=== PATIENT | female | born 1965 | race Caucasian/White ===

== ENCOUNTER → 2016-11-25 | Outpatient (CLI) | payer OTHER ==
[~2016-11-25] MED LIST: GLUC1CAP18 PO; MULT1TAB60 PO
== END | disposition home or self-care (01) ==
LOC: CFH 13:50
PROVIDERS: ATTEND Family Medicine
DX: Z12.31 Encounter for screening mammogram for malignant neoplasm of breast (principal); M25.511 Pain in right shoulder
CPT/HCPCS: 73030; 77063; G0202

== ENCOUNTER 2019-02-06 10:35 | Emergency (ER) | payer OTHER ==
[~2019-02-06] VITALS: Ht 167.6 cm; Wt 85.7 kg
[2019-02-06 10:37] VITALS: BP 151/66
[2019-02-06] MEDS ORDERED: ACETAMINOPHEN 500 MG TABLET PO ONE (11:00)
[2019-02-06] MEDS ORDERED: ONDANSETRON 2MG/ML, 2ML IVPush ONE (11:00)
[2019-02-06] MEDS ORDERED: OMEG-157 PO (11:15)
[2019-02-06] MEDS ORDERED: ACETAMINOPHEN 500 MG TABLET ONE (11:22)
--- NOTE | 2019-02-06 11:28 | NUR ---
PIV STARTED AND BLOOD DRAWN. URINE COLLECTED AND SENT TO LAB WITH BLOOD. CARDIAC AND SPO2 AND BP CUFF APPLIED.
[2019-02-06 11:32] LABS: BASOPHILS # (AUTO) 0.02 x10^3/uL (0-0.1); BASOPHILS % (AUTO) 0 % (0-1); EOSINOPHILS # (AUTO) 0.08 x10^3/uL (0-0.4); EOSINOPHILS % (AUTO) 1 % (1-7); LYMPHOCYTES # (AUTO) 0.91 x10^3/uL (1-3.4); LYMPHOCYTES % (AUTO) 15 % (22-44); MD NO; MEAN CORPUSCULAR HEMOGLOBIN 30.1 pg (27.0-34.8); MEAN CORPUSCULAR HGB CONC 33.2 g/dL (32.4-35.8); MEAN CORPUSCULAR VOLUME 90.8 fL (80-100); MEAN PLATELET VOLUME 8.2 fL (7.4-10.4); MONOCYTES # (AUTO) 0.44 x10^3/uL (0.2-0.8); MONOCYTES % (AUTO) 7 % (2-9); NEUTROPHILS # (AUTO) 4.81 x10^3/uL (1.8-6.8); NEUTROPHILS % (AUTO) 77 % (42-75); PLATELET COUNT 255 x10^3/uL (130-400); RED CELL DISTRIBUTION WIDTH 13.3 % (9.6-15.2)
[2019-02-06 11:46] LABS: ALANINE AMINOTRANSFERASE 36 U/L (12-78); ANION GAP 5 mmol/L (5-15); CALCIUM 8.9 mg/dL (8.5-10.1); CHLORIDE 110 mmol/L (98-107); CREATININE 0.75 mg/dL (0.55-1.02)
[2019-02-06 11:48] LABS: ALKALINE PHOSPHATASE 56 U/L (45-117); BILIRUBIN,TOTAL 0.5 mg/dL (0.2-1.0); TOTAL PROTEIN 7.5 g/dL (6.4-8.2)
[2019-02-06 11:50] LABS: MICROSCOPIC AUTO
[2019-02-06 11:52] LABS: CULTURE INDICATED? YES
--- NOTE | 2019-02-06 12:17 | NUR ---
PT TO CT AT THIS TIME.
[2019-02-06] MEDS ORDERED: OMNIPAQUE 350 MG/ML, 100ML BOTTLE ONE (12:30)
--- NOTE | 2019-02-06 13:43 | NUR ---
Patient/Caregiver given discharge instructions and they have confirmed that they understand the instructions. Patient ambulatory with steady gait.
== END 2019-02-06 13:44 | disposition home or self-care (01) ==
LOC: ED 11:50
DX: K57.32 Diverticulitis of large intestine without perforation or abscess without bleeding (principal); Z90.49 Acquired absence of other specified parts of digestive tract; Z98.51 Tubal ligation status; Z98.890 Other specified postprocedural states
CPT/HCPCS: 36415; 74177; 80053; 81001; 83690; 85025; 87086; 99284; Q9967

== ENCOUNTER → 2019-07-02 | Outpatient (CLI) | payer OTHER ==
[~2019-07-02] MED LIST changes: +OMEG-157 PO
== END | disposition home or self-care (01) ==
LOC: CFH 07:52
PROVIDERS: ATTEND Nurse Practitioner Family
DX: I42.9 Cardiomyopathy, unspecified (principal); R94.31 Abnormal electrocardiogram [ECG] [EKG]
CPT/HCPCS: 78452; 93017; A9502